=== PATIENT | female | born 1975 | race Two or more races ===

== ENCOUNTER 2025-01-31 07:28 | Emergency (ER) | payer OTHER ==
[~2025-01-31] VITALS: Ht 165.1 cm; Wt 67.6 kg
[2025-01-31 07:43] VITALS: BP 133/81; O2SAT 99
[2025-01-31] MEDS ORDERED: CEFTRIAXONE SODIUM 1,000 MG VIAL IM ONE (10:00)
[2025-01-31] MEDS ORDERED: KETOROLAC TROMETHAMINE 60 MG VIAL IM ONE (10:00)
[2025-01-31 10:19] LABS: BASO % 0.6 % (0.1-1.2); EOS # 0.07 (0.04-0.54); EOS % 1.5 % (0.7-7.0); LYMPH # 1.39 (1.18-3.74); LYMPH % 29.3 % (19.3-53.1); MEAN PLATELET VOLUME 9.20 fl (9.4-12.4); MONO # 0.52 (0.24-0.82); MONO % 11.0 % (4.7-12.5); NEUT # 2.72 (1.56-6.13); NEUT % 57.4 % (34.0-71.1); RED CELL DISTRIBUTION WIDTH 11.9 % (11.6-14.4)
[2025-01-31 10:54] LABS: URINE APPEARANCE Clear; URINE BILIRRUBIN Negative (NEGATIVE); URINE BLOOD Negative; URINE COLOR Yellow; URINE GLUCOSE Negative (NEGATIVE); URINE KETONE Negative (NEGATIVE); URINE LEUKOCYTE Trace; URINE NITRATE Negative; URINE PROTEIN Negative (NEGATIVE); URINE UROBILINOGEN 0.2 E.U./dl
[2025-01-31 10:58] LABS: URINE BACTERIA 5.9 uL (0.0-1933); URINE EPITHELIAL CELLS 1.5 uL (0.0-38.8); URINE RBC 5.7 uL (0.0-20.8); URINE WBC 5.2 uL (0.0-23.2)
[2025-01-31 11:04] LABS: URINE CAST 0.00 uL (0.0-1.40)
[2025-01-31 11:05] LABS: COVID-19 AG NEGATIVE (NEGATIVE)
[2025-01-31 11:14] LABS: ALT/SGPT 39.0 U/L (12-78); AST/SGOT 24.0 U/L (15-37); BILIRUBIN TOTAL 0.31 mg/dL (0.3-1.2); BUN CREA RATIO 33.0 (7.0-25.0); CREATININE SERUM 0.42 mg/dL (0.55-1.02); GFR 161.03; GLOBULINA 3.3 G/DL (2.4-3.5); GLUCOSE FASTING 146.0 mg/dL (65-100); OSMOLALITY SERUM 288.0 MOSM/KG (275-295)
[2025-01-31] MEDS ORDERED: BACTRIM DS TAB1 EACH PO (11:26)
[2025-01-31] MEDS ORDERED: PEPCID AC20 MG PO (11:26)
== END 2025-01-31 11:35 | disposition home or self-care (01) ==
LOC: ER 07:28
PROVIDERS: General Practice
DX: R60.0 Localized edema (principal); J00 Acute nasopharyngitis [common cold]; M79.7 Fibromyalgia; Z20.822 Contact with and (suspected) exposure to COVID-19